=== PATIENT | male | born 1955 | race African-American/Black ===

== ENCOUNTER 2018-01-03 09:32 | Emergency (ER) | payer OTHER ==
[~2018-01-03] VITALS: Ht 177.8 cm; Wt 83.9 kg
[~2018-01-03 09:32] MED LIST: AMBIEN5 MG ORAL; BACTRIM DS TAB1 EAC1 ORAL; BACTRIM-DS1 EA ORAL; GLAUCOMA GTTS; KEFLEX500 MG ORAL; UNOBMED
[2018-01-03 10:27] VITALS: BP 119/80
[2018-01-03 10:42] LABS: APPEARANCE,URINE CLEAR; BILIRUBIN, URINE NEGATIVE (NEGATIVE); COLOR,URINE YELLOW; GLUCOSE, URINE (UA) NEGATIVE (NEGATIVE); KETONES,URINE NEGATIVE (NEGATIVE); LEUKOCYTE ESTERASE ,URINE 1+ (NEGATIVE); NITRITE,URINE NEGATIVE (NEGATIVE); PH,URINE 6 (4.5-8.0); PROTEIN,URINE 1+ (NEGATIVE); UROBILINOGEN,URINE NORMAL MG/DL (0.0-1.0)
[2018-01-03] MEDS ORDERED: Isovue-300 100ml vial INJ PRN (10:45)
--- NOTE | 2018-01-03 11:10 | Emergency Room Report ---
History of Present Illness General Chief Complaint: Pain Source: Patient Present Illness HPI 62-year-old male presents with 2 complaints. One is right-sided inguinal swelling, patient states she is able to push it back. He has never had abdominal or pelvic surgery previously. Denies any redness or severe pain to area. He is also complaining of "swelling" to left upper chest behind breast that he says is getting larger. No associated fever, chills or redness to area. States he told primary care doctor about it however this area has gotten larger according to the patient. He denies any prior history of smoking. 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 Allergies: Coded Allergies: No Known Allergies (Unverified , 01/10/13) Patient History Past Medical History: none Past Surgical History: none Pertinent Family History: none Social History: Denies: smoking, alcohol use, drug use Immunizations: UTD Reviewed Nursing Documentation: PMH: Agreed; PSxH: Agreed Nursing Documentation-PMH Past Medical History: No History, Except For Hx Hypertension: Yes Hx Diabetes: Yes Review of Systems All Other Systems: negative except mentioned in HPI Physical Exam Vital Signs Date Time Temp Pulse Resp B/P (MAP) Pulse Ox O2 Delivery O2 Flow Rate FiO2 01/03/18 09:49 98.3 79 16 119/80 94 Room Air 98.2 Sp02 EP Interpretation: reviewed, normal General Appearance: normal inspection, well appearing, no apparent distress, alert, GCS 15, non-toxic Head: normocephalic, atraumatic Eyes: bilateral eye PERRL, bilateral eye EOMI ENT: normal ENT inspection, hearing grossly normal, normal pharynx, no angioedema, normal voice, TMs + canals normal, uvula midline, moist mucus membranes Neck: normal inspection, full range of motion, supple, thyroid normal, no meningismus, no bony tend Respiratory: normal inspection, lungs clear, normal breath sounds, no rhonchi, no respiratory distress, no retraction, no accessory muscle use, no wheezing, speaking full sentences Cardiovascular #1: regular rate, rhythm, no edema, no JVD, normal capillary refill, other - left side of chest; palpable subcutaneous mass as large as left breast. No overlying erythema, mild ttp. No rash. Gastrointestinal: normal inspection, normal bowel sounds, non tender, soft, no mass, no peritonitis, non-distended, no guarding, no pulsatile mass, other - Right inguinal reducible hernia. No overlying erythema or severe ttp. Genitourinary: no CVA tenderness Musculoskeletal: normal inspection, back normal, normal range of motion, no calf tenderness, pelvis stable, Alicia's Sign negative Neurologic: normal inspection, alert, oriented x3, responsive, chief service observer III-XII nml as tested, motor strength/tone normal, cerebellar normal, normal gait, speech normal Psychiatric: normal inspection, judgement/insight normal, mood/affect normal, no suicidal/homicidal ideation, no delusions Skin: normal inspection, normal color, no rash Lymphatic: normal inspection, no adenopathy Medical Decision Making Diagnostic Impression: Primary Impression: Left inguinal hernia Additional Impressions: Chest wall pain Gynecomastia, male ER Course Right inguinal hernia Hernia is reproducible There is no overlying erythema Low suspicion for strangulation or incarceration Patient can follow up with general surgery for elective outpatient repair Left chest wall mass Labs: No leukocytosis or other metabolic abnormalities CT chest: left sided gynecomastia - recommended outpatient ultrasound/mammogram ER course: Patient has remained stable during ED stay. Disposition: Patient is to be discharged to home. Patient is instructed to follow up with their primary care doctor within 5 days. Follow up with genSurg for elective repair of right inguinal hernia Strict return precautions discussed with patient such as fever, chills, worsening/severe pain, nausea, vomiting, which may indicate severe illness. Patient verbalizes understanding and agrees with plan. Please note that this Emergency Department Report was dictated using [employer] electronics technician technology software, occasionally this can lead to erroneous entry secondary to interpretation by the dictation equipment Last Vital Signs Date Time Temp Pulse Resp B/P (MAP) Pulse Ox O2 Delivery O2 Flow Rate FiO2 01/03/18 10:27 98.2 78 16 119/80 94 Room Air 98.2 Status: improved Disposition: HOME, SELF-CARE ROOSEVELT RANDALL M.D. Jan 03, 2018 11:10
[2018-01-03 11:15] LABS: HEMATOCRIT 49.7 % (42.0-52.0); HEMOGLOBIN 15.7 G/DL (14.2-18.0); LYMPHOCYTES % (AUTO) 39.1 % (20.0-45.0); MEAN CORPUSCULAR VOLUME 82 FL (80-99); MONOCYTES % (AUTO) 9.8 % (1.0-10.0); PLATELET COUNT 167 K/UL (150-450); RED BLOOD COUNT 6.09 M/UL (4.70-6.10); RED CELL DISTRIBUTION WIDTH 11.5 % (11.6-14.8); WHITE BLOOD COUNT 7.3 K/UL (4.8-10.8)
[2018-01-03 11:24] LABS: ANION GAP 8 mmol/L (5-15); BLOOD UREA NITROGEN 12 mg/dL (7-18); CALCIUM 9.6 MG/DL (8.5-10.1); CARBON DIOXIDE 29 MMOL/L (21-32); CHLORIDE 102 MMOL/L (98-107); CREATININE 0.9 MG/DL (0.55-1.30); POTASSIUM 4.3 MMOL/L (3.5-5.1); SODIUM 139 MMOL/L (136-145)
[2018-01-03 11:29] LABS: ALANINE AMINOTRANSFERASE 45 U/L (12-78); ALBUMIN 4.4 G/DL (3.4-5.0); ALBUMIN/GLOBULIN RATIO 1.1 (1.0-2.7); ALKALINE PHOSPHATASE 106 U/L (46-116); ASPARTATE AMINO TRANSFERASE 32 U/L (15-37); BILIRUBIN,TOTAL 0.9 MG/DL (0.2-1.0)
[2018-01-03] MEDS ORDERED: CEPHALEXIN500 MG ORAL (12:57)
[2018-01-03 13:05] VITALS: BP 124/81
--- NOTE | 2018-01-03 13:05 | Diagnostic Imaging Report ---
Clinical Indication: Chest pain, left pectoral swelling Technique: IV administration nonionic contrast. Spiral acquisition obtained through the chest. Multiplanar reconstructions generated. Total dose length product 789.31 mGycm. CTDIvol(s) 18.33 mGy. Dose reduction achieved using automated exposure control Comparison: none Findings: There is asymmetric gynecomastia on the left. There is equivocal very slight infiltration of the surrounding fat in asymmetric slight abundance of the surrounding fat. No fluid collections are demonstrated. The lungs demonstrate minimal atelectasis or scarring the left lung base, are otherwise clear. The left hemidiaphragm is elevated. The heart size is normal. No pericardial effusion. No mediastinal or hilar mass or adenopathy. The thyroid is unremarkable. No axillary mass or adenopathy. The bones are unremarkable. The included upper abdominal anatomy is unremarkable Impression: Asymmetric gynecomastia on the left. Equivocal minimal stranding of the surrounding fat, could indicate superimposed inflammatory if real. No evidence of abscess. Given stated clinical history of swelling and palpable abnormality, consider further evaluation with mammography and ultrasound. Elevated hemidiaphragm on the left, with minimal atelectasis No other acute or significant abnormality Findings discussed previously by phone with Dr. Cruz in the emergency room The CT scanner at [facility] is accredited by the [employer] and the scans are performed using protocols designed to limit radiation exposure to as low as reasonably achievable to attain images of sufficient resolution adequate for diagnostic evaluation.
[2018-01-03 13:15] VITALS: BP 124/81
== END 2018-01-03 13:15 | disposition home or self-care (01) ==
LOC: EMR 11:00
DX: K40.90 Unilateral inguinal hernia, without obstruction or gangrene, not specified as recurrent (principal); R07.89 Other chest pain; N62 Hypertrophy of breast; I10 Essential (primary) hypertension; E11.9 Type 2 diabetes mellitus without complications
CPT/HCPCS: 36415; 71260; 80053; 81003; 85025; 99284; Q9967

== ENCOUNTER 2018-04-26 16:47 | Emergency (ER) | payer OTHER ==
[~2018-04-26] VITALS: Ht 182.9 cm; Wt 83.5 kg
[~2018-04-26 16:47] MED LIST changes: +CEPHALEXIN500 MG ORAL
[2018-04-26] MEDS ORDERED: METFORMIN HCL500 M1 ORAL (16:57)
[2018-04-26] MEDS ORDERED: blood pressure (16:57)
[2018-04-26 17:07] VITALS: BP 168/95
[2018-04-26] MEDS ORDERED: BACITRACIN-P28.35 GM TP (17:09)
--- NOTE | 2018-04-26 17:09 | Emergency Room Report ---
History of Present Illness General Chief Complaint: Skin Rash/Abscess Source: Patient Present Illness HPI 62-year-old male patient presents ER complaining of corn on his right pinky toe. Reports that has been present for the past 2-1/2 weeks. Reports it is been soaking in warm baths and treating it with [id number] medication. Patient requesting to be evaluated for possible infection. Denies pain, itchiness, swelling or erythema. Reports history of diabetes, states that he is taking medications as instructed. Reports good follow-up and healthy diet. Denies fever, chest pain, shortness of breath. Denies neuropathy in foot. Allergies: Coded Allergies: No Known Allergies (Unverified , 01/10/13) Patient History Past Medical History: see triage record Reviewed Nursing Documentation: PMH: Agreed; PSxH: Agreed Nursing Documentation-PMH Past Medical History: No History, Except For Hx Hypertension: Yes Hx Diabetes: Yes Review of Systems All Other Systems: negative except mentioned in HPI Physical Exam Vital Signs Date Time Temp Pulse Resp B/P (MAP) Pulse Ox O2 Delivery O2 Flow Rate FiO2 04/26/18 16:50 98.1 68 17 168/95 98 Room Air 98.1 Sp02 EP Interpretation: reviewed, normal General Appearance: well appearing, no apparent distress, alert, GCS 15, non- toxic Head: normocephalic, atraumatic Eyes: bilateral eye normal inspection, bilateral eye PERRL ENT: hearing grossly normal, normal pharynx, no angioedema, normal voice, uvula midline, moist mucus membranes Neck: full range of motion Respiratory: lungs clear, normal breath sounds, no rhonchi, no respiratory distress, no accessory muscle use, no wheezing, speaking full sentences Cardiovascular #1: regular rate, rhythm, no edema Cardiovascular #2: 2+ dorsalis pedis (R), 2+ dorsalis pedis (L) Musculoskeletal: back normal, digits/nails normal, gait/station normal, normal range of motion, non-tender Neurologic: alert, oriented x3, responsive, motor strength/tone normal, sensory intact Psychiatric: mood/affect normal Skin: other - the aspect of right small toe: 1 cm circular callus lesion, no tenderness to palpation, no vesicle, no blister, no surrounding erythema or edema, sensation intact to light touch, no wart, no black dots Medical Decision Making PA Attestation Dr. Matthews is my supervising Physician whom patient management has been discussed with. Diagnostic Impression: Primary Impression: Callus ER Course Pt. presents to the ED c/o corner on right pinky toe. Ddx considered but are not limited to blisters, cellulitis, abscess ,warts, corn , callus, felon, gout, psoriasis, rosacea, syphilis. Vital signs: are WNL, pt. is afebrile ER course: Physical exam consistent with likely callus, no signs of infection, does not require treatment with oral antibiotics. per patient request, patient with topical antibiotic to prevent infection. No blisters, vesicles, skin sloughing noted on physical exam. Advised patient to follow up with podiatry as outpatient. Will provide contact information for therapeutic recreation leader. Follow-up with primary care provider. Continue take these medications as instructed. Return to ER for new or worsening of symptoms. DISCHARGE: -Rx provided for Ibuprofen for pain symptoms. At this time pt. is stable for d/c to home. patient resting comfortably in acute distress, nontoxic appearing Will provide printed patient care instructions, and any necessary prescriptions. Care plan and follow up instructions have been discussed with the patient prior to discharge. Patient instructed to follow-up with primary care provider in 3 - 5 days for further treatment of feet and removal of warts and possible referral to therapeutic recreation leader. Patient questions asked and answered. ER precautions given. Patient instructed to return to ER immediately for any new or worsening of symptoms including but not limited to fever, erythema, edema , necrosis. - Please note that this Emergency Department Report was dictated using [employer] Java[employer] systems manager technology software, occasionally this can lead to erroneous entry secondary to interpretation by the dictation equipment. Last Vital Signs Date Time Temp Pulse Resp B/P (MAP) Pulse Ox O2 Delivery O2 Flow Rate FiO2 04/26/18 16:50 98.1 68 17 168/95 98 Room Air 98.1 Disposition: HOME, SELF-CARE Condition: Stable Scripts Bacitracin/Polymyxin B Sulfate (BACITRACIN-POLYMYXIN OINTMENT) 28.35 Gm Oint...g. 1 APPLIC TP BID, #28 GM Prov: Tu Flaherty 04/26/18 Referrals: [facility],REFERRING (PCP) Patient Instructions: Corns and Calluses Additional Instructions: Followup with primary care provider in 3 -5 days Request referral to podiatry. Call therapeutic recreation leader as scheduled appointment. keep clean and dry. Take medications as directed. Patient questions asked and answered. ER precautions given, patient instructed to return to ER immediately for any new or worsening of symptoms. Tu Flaherty Apr 26, 2018 17:09
[2018-04-26 17:19] VITALS: BP 168/95
== END 2018-04-26 17:19 | disposition home or self-care (01) ==
LOC: EMR 17:01
DX: L84 Corns and callosities (principal)
CPT/HCPCS: 99282

== ENCOUNTER 2019-11-19 17:34 | Emergency (ER) | payer MEDICAID, OTHER ==
[~2019-11-19] VITALS: Ht 182.9 cm; Wt 81.6 kg
[~2019-11-19 17:34] MED LIST changes: +BACITRACIN-P28.35 GM TP; +METFORMIN HCL500 M1 ORAL; +blood pressure
[2019-11-19 17:52] VITALS: BP 131/84
--- NOTE | 2019-11-19 18:04 | NUR ---
ED Nurse Note:pt. came with bilateral ankle edema for some time, VSS, ambulatory, EKG done blood sent to labs
[2019-11-19 18:09] LABS: BASOPHILS % (AUTO) 1.5 % (0.0-2.0); HEMATOCRIT 42.9 % (42.0-52.0); HEMOGLOBIN 13.4 G/DL (14.2-18.0); LYMPHOCYTES % (AUTO) 40.2 % (20.0-45.0); MEAN CORPUSCULAR VOLUME 84 FL (80-99); MONOCYTES % (AUTO) 6.9 % (1.0-10.0); NEUTROPHILS % (AUTO) 49.4 % (45.0-75.0); PLATELET COUNT 158 K/UL (150-450); RED BLOOD COUNT 5.09 M/UL (4.70-6.10); RED CELL DISTRIBUTION WIDTH 12.5 % (11.6-14.8); WHITE BLOOD COUNT 7.9 K/UL (4.8-10.8)
[2019-11-19 18:18] LABS: ANION GAP 11 mmol/L (5-15); BLOOD UREA NITROGEN 17 mg/dL (7-18); CALCIUM 8.9 MG/DL (8.5-10.1); CARBON DIOXIDE 29 MMOL/L (21-32); CHLORIDE 105 MMOL/L (98-107); CREATININE 1.2 MG/DL (0.55-1.30); POTASSIUM 3.9 MMOL/L (3.5-5.1); SODIUM 145 MMOL/L (136-145)
--- NOTE | 2019-11-19 18:32 | Emergency Room Report ---
History of Present Illness General Chief Complaint: Edema Source: Patient Present Illness HPI Patient presents with complaints of some mild swelling to both of his ankles Reports that he has noticed the area for the last several days denies any chest pain or shortness of breath denies any vomiting denies any fevers or chills denies any cough denies any flank pain denies any change in medications denies any rash Allergies: Coded Allergies: No Known Allergies (Unverified , 01/10/13) COVID-19 Screening Contact w/high risk pt: No Recent Travel to affected area: No Experienced COVID-19 symptoms?: No Patient History Past Medical History: see triage record Reviewed Nursing Documentation: PMH: Agreed; PSxH: Agreed Nursing Documentation-PMH Past Medical History: No History, Except For Hx Cardiac Problems: No Hx Hypertension: Yes Hx Pacemaker: No Hx Asthma: No Hx COPD: No Hx Diabetes: Yes Hx Gastrointestinal Problems: No Review of Systems All Other Systems: negative except mentioned in HPI Physical Exam Vital Signs Date Time Temp Pulse Resp B/P (MAP) Pulse Ox O2 Delivery O2 Flow Rate FiO2 11/19/19 17:37 98.2 78 18 131/84 (100) 97 Room Air Sp02 EP Interpretation: reviewed, normal General Appearance: well appearing, no apparent distress Head: normocephalic, atraumatic Eyes: bilateral eye PERRL, bilateral eye EOMI ENT: hearing grossly normal, normal pharynx, TMs + canals normal, uvula midline Neck: full range of motion, supple, no meningismus, no bony tend Respiratory: lungs clear, normal breath sounds, no rhonchi, no respiratory distress, no retraction, no accessory muscle use Cardiovascular #1: normal peripheral pulses, regular rate, rhythm, no gallop, no JVD, no murmur Gastrointestinal: normal bowel sounds, non tender, soft, no mass, no organomegaly, non-distended, no guarding, no hernia, no pulsatile mass, no rebound Genitourinary: no CVA tenderness Musculoskeletal: normal inspection Neurologic: motor strength/tone normal, eap counselor III-XII nml as tested, oriented x3 , sensory intact, responsive Psychiatric: mood/affect normal Skin: other - There is very minimally noticeable mild swelling to both lateral aspects of the ankles nonpitting in nature appears to be fairly dependent. Neurovascularly intact Lymphatic: normal inspection, no adenopathy Medical Decision Making Diagnostic Impression: Primary Impression: Edema ER Course Multiple differentials including but not limited to cardiac, renal, vascular emergencies entertained Patient did have baseline blood work initiated EKG was normal patient resting comfortably With the normal findings patient is stable for close outpatient follow-up patient was recommended to have pressure stockings keep legs elevated and at this time I did not feel patient met criteria for medication for this Labs Test 11/19/19 17:55 White Blood Count 7.9 K/UL (4.8-10.8) Red Blood Count 5.09 M/UL (4.70-6.10) Hemoglobin 13.4 G/DL (14.2-18.0) Hematocrit 42.9 % (42.0-52.0) Mean Corpuscular Volume 84 FL (80-99) Mean Corpuscular Hemoglobin 26.4 PG (27.0-31.0) Mean Corpuscular Hemoglobin Concent 31.3 G/DL (32.0-36.0) Red Cell Distribution Width 12.5 % (11.6-14.8) Platelet Count 158 K/UL (150-450) Mean Platelet Volume 7.3 FL (6.5-10.1) Neutrophils (%) (Auto) 49.4 % (45.0-75.0) Lymphocytes (%) (Auto) 40.2 % (20.0-45.0) Monocytes (%) (Auto) 6.9 % (1.0-10.0) Eosinophils (%) (Auto) 2.0 % (0.0-3.0) Basophils (%) (Auto) 1.5 % (0.0-2.0) Sodium Level 145 MMOL/L (136-145) Potassium Level 3.9 MMOL/L (3.5-5.1) Chloride Level 105 MMOL/L (98-107) Carbon Dioxide Level 29 MMOL/L (21-32) Anion Gap 11 mmol/L (5-15) Blood Urea Nitrogen 17 mg/dL (7-18) Creatinine 1.2 MG/DL (0.55-1.30) Estimat Glomerular Filtration Rate > 60 mL/min (>60) Glucose Level 109 MG/DL (74-106) Calcium Level 8.9 MG/DL (8.5-10.1) Pro-B-Type Natriuretic Peptide 50 pg/mL (0-125) Rhythm Strip Diag. Results EP Interpretation: yes Rate: 75 Rhythm: NSR, no PVC's, no ectopy Last Vital Signs Date Time Temp Pulse Resp B/P (MAP) Pulse Ox O2 Delivery O2 Flow Rate FiO2 11/19/19 17:52 78 18 Room Air 11/19/19 17:52 98.2 131/84 97 Status: improved Disposition: HOME, SELF-CARE Condition: Improved Scripts [leg stocking] No Conflict Check #2 Prov: Irina Singh DO 11/19/19 Referrals: [facility],REFERR (PCP) Additional Instructions: Patient is provided with the discharge instructions notified to follow up with primary doctor in the next 2-3 days otherwise return to the er with any worsening symptoms. Please note that this report is being documented using [employer] technology. This can lead to erroneous entry secondary to incorrect interpretation by the dictating instrument. Irina Singh DO Nov 19, 2019 18:32
[2019-11-19] MEDS ORDERED: [UNRECOGNIZED DRUG - SUPPLY] (18:46)
[2019-11-19 18:50] VITALS: BP 131/84
--- NOTE | 2019-11-19 18:50 | NUR ---
ER DISCHARGE NOTE: Patient is cleared to be discharged per ERMD, pt is aox4, on room air, with stable vital signs. pt was given dc and prescription instructions, pt was able to verbalize understanding. pt is able to ambulate with steady gait. pt took all belongings.
== END 2019-11-19 18:59 | disposition home or self-care (01) ==
LOC: EMR 17:51
DX: R60.0 Localized edema (principal); I10 Essential (primary) hypertension; E11.9 Type 2 diabetes mellitus without complications
CPT/HCPCS: 36415; 80048; 83880; 85025; 93005; Z7502; 99283